=== PATIENT | male | born 1960 | race Caucasian/White ===

== ENCOUNTER 2018-09-02 12:50 | Emergency (ER) | payer MEDICARE, OTHER ==
[~2018-09-02] VITALS: Wt 85.2 kg
[2018-09-02 12:57] VITALS: Wt 85.2 kg
[2018-09-02] MEDS ORDERED: KETOROLAC 15 MG INJ IV STA (13:37)
[2018-09-02] MEDS ORDERED: ACETAMINOPHEN 325 MG TAB PO ONE (14:00)
[2018-09-02] MEDS ORDERED: SOD CHLORIDE 0.9% 1,000 ML IV ONE ×2 (15:00→15:27)
[2018-09-02] MEDS ORDERED: CEFTRIAXONE 1 GM/50 ML (PMX) 50 ML IVPB ONE (15:00)
[2018-09-02] MEDS ORDERED: INSULIN LISPRO 100 UNIT/ML VIAL SC ONE (15:30)
[2018-09-02] MEDS ORDERED: ACET500C5 PO (16:32)
[2018-09-02] MEDS ORDERED: CIPR500T4 PO (16:32)
[2018-09-02] MEDS ORDERED: TAMS-14 PO (16:32)
--- NOTE | 2018-09-02 16:38 | ERD ---
ER Documentation Chief Complaint Chief Complaint states constipation x1d, problems urinating. hx prostate HPI 58-year-old male presents with dysuria for the last day. He also states that he has had a bowel movement today. Normal bowel and yesterday. He has a history of difficulty urinating and states that he has an enlarged prostate. May have had chills but no nausea vomiting. He has mild suprapubic discomfort. Denies flank pain. Denies chest pain or shortness of breath. ROS All systems reviewed and are negative except as per history of present illness. Medications Home Meds Active Scripts Tamsulosin Hcl* (Flomax*) 0.4 Mg Cap.er.24h, 0.4 MG PO BID, #30 CAP Prov:DAPHNE BRADLEY MD 09/02/18 Ciprofloxacin Hcl* (Ciprofloxacin Hcl*) 500 Mg Tablet, 500 MG PO BID for 10 Days, TAB Prov:DAPHNE BRADLEY MD 09/02/18 Acetaminophen* (Tylophen*) 500 Mg Capsule, 1 CAP PO Q6H PRN for PAIN AND OR ELEVATED TEMP, #20 CAP Prov:DAPHNE BRADLEY MD 09/02/18 Allergies Allergies: Coded Allergies: No Known Allergy (Unverified , 09/02/18) PMhx/Soc Medical and Surgical Hx: pt denies Medical Hx History of Surgery: Yes (HERNIA SURGERY (2011)) Anesthesia Reaction: No Hx Neurological Disorder: No Hx Respiratory Disorders: No Hx Cardiac Disorders: No Hx Psychiatric Problems: No Hx Miscellaneous Medical Probl: No Hx Alcohol Use: Yes (RARELY, 1 BEER EVERY 6 MONTHS PER PT) Hx Substance Use: No Hx Tobacco Use: No Smoking Status: Never smoker FmHx Family History: No diabetes, No coronary disease, No other Physical Exam Vitals Vital Signs Date Temp Pulse Resp B/P (MAP) Pulse Ox O2 O2 Flow FiO2 Time Delivery Rate 09/02/18 99.9 16:13 09/02/18 100.6 94 20 109/57 96 12:57 (74) Physical Exam Const: No acute distress. [id number] and ambulatory. Head: Atraumatic Eyes: Normal Conjunctiva ENT: Normal External Ears, Nose and Mouth. Neck: Full range of motion. No meningismus. Resp: Clear to auscultation bilaterally Cardio: Regular rate and rhythm, no murmurs Abd: Soft, minimal suprapubic or lower abdominal tenderness without focal rebound. No tenderness McBurney's point no Morrison sign. Non distended. Normal bowel sounds Skin: No petechiae or rashes Back: No midline or flank tenderness Ext: No cyanosis, or edema Neur: Awake and alert Psych: Normal Mood and Affect Result Diagram: 09/02/18 1422 09/02/18 1422 Results 24 hrs Laboratory Tests Test 09/02/18 14:22 09/02/18 15:39 White Blood Count 15.8 10^3/ul Red Blood Count 4.50 10^6/ul Hemoglobin 14.5 g/dl Hematocrit 42.6 % Mean Corpuscular Volume 94.7 fl Mean Corpuscular Hemoglobin 32.2 pg Mean Corpuscular Hemoglobin Concent 34.0 g/dl Red Cell Distribution Width 11.8 % Platelet Count 146 10^3/UL Mean Platelet Volume 8.5 fl Immature Granulocytes % 1.100 % Neutrophils % 86.5 % Lymphocytes % 7.6 % Monocytes % 4.4 % Eosinophils % 0.1 % Basophils % 0.3 % Nucleated Red Blood Cells % 0.0 /100WBC Immature Granulocytes # 0.180 10^3/ul Neutrophils # 13.7 10^3/ul Lymphocytes # 1.2 10^3/ul Monocytes # 0.7 10^3/ul Eosinophils # 0.0 10^3/ul Basophils # 0.1 10^3/ul Nucleated Red Blood Cells # 0.0 10^3/ul Urine Color YELLOW Urine Clarity CLOUDY Urine pH 5.0 Urine Specific [place] 1.037 Urine Ketones 1+ mg/dL Urine Nitrite POSITIVE mg/dL Urine Bilirubin NEGATIVE mg/dL Urine Urobilinogen NEGATIVE mg/dL Urine Leukocyte Esterase 3+ Jesus/ul Urine Microscopic RBC 19 /HPF Urine Microscopic WBC > 182 /HPF Urine Hemoglobin 1+ mg/dL Urine Glucose 3+ mg/dL Urine Total Protein NEGATIVE mg/dl Sodium Level 135 mmol/L Potassium Level 4.3 mmol/L Chloride Level 101 mmol/L Carbon Dioxide Level 24 mmol/L Anion Gap 10 Blood Urea Nitrogen 15 mg/dl Creatinine 0.83 mg/dl Est Glomerular Filtrat Rate mL/min > 60 mL/min Glucose Level 387 mg/dl Calcium Level 9.7 mg/dl Total Bilirubin 1.8 mg/dl Direct Bilirubin 0.00 mg/dl Indirect Bilirubin 1.8 mg/dl Aspartate Amino Transf (AST/SGOT) 25 IU/L Alanine Aminotransferase (ALT/SGPT) 41 IU/L Alkaline Phosphatase 91 IU/L Total Protein 6.7 g/dl Albumin 3.9 g/dl Globulin 2.80 g/dl Albumin/Globulin Ratio 1.39 Lipase 34 U/L Bedside Glucose 298 mg/dL Current Medications Medications Dose Sig/Gavin Start Time Status Last (Trade) Ordered Route PRN Stop Time Admin Dose Reason Admin Ketorolac 15 mg ONCE STAT 09/02/18 DC 09/02/18 Tromethamine IV 13:37 15:20 (Toradol) 09/02/18 13:39 650 mg ONCE ONCE 09/02/18 DC 09/02/18 Acetaminophen PO 14:00 15:20 (Tylenol 09/02/18 14:01 Tab) Ceftriaxone 50 ml @ ONCE ONCE 09/02/18 DC 09/02/18 Sodium 100 mls/hr IVPB 15:00 15:21 09/02/18 15:29 Sodium 1,000 ml @ Q0M ONCE 09/02/18 DC 09/02/18 Chloride 0 mls/hr IV 15:00 15:21 09/02/18 15:01 Sodium 1,000 ml @ Q0M ONCE 09/02/18 DC 09/02/18 Chloride 0 mls/hr IV 15:27 15:43 09/02/18 15:28 Insulin 8 unit ONCE ONCE 09/02/18 DC 09/02/18 Human SC 15:30 15:41 Lispro 09/02/18 15:31 (Humalog) Procedures/MDM CBC shows leukocytosis of 15.8. Blood sugar is elevated at 387. CMP otherwise without acute findings. Urine shows leukocyte esterase, nitrites, white blood cells. Urine sent for culture. Patient given 2 L normal saline IV, 8 units Humalog subcutaneously. Patient given Rocephin 1 g IV. Repeat blood sugar was 297. Patient was stable and ambulatory and [id number] throughout the ER course. Patient presents with signs and symptoms of acute UTI. He does have a low-grade temperature triage but no signs or symptoms to suggest severe sepsis. He is well-appearing and should be amenable to outpatient treatment with close follow-up. CT abdomen pelvis shows nonspecific calcified small lesion in the lower abdomen and thickening of bladder wall consistent with cystitis. There is no signs or symptoms of pyelonephritis, abscess, additional acute abnormalities. Patient be discharged home with a prescription of Cipro, Flomax, ibuprofen, recommendations for primary care follow-up review of abnormality on CT. Should return for fevers, vomiting, worsening pain, new worsening symptoms. The patient was stable with no new complaints during the ER course. Clinically, there is no current evidence to suggest meningitis, sepsis, acute abdomen, pneumonia, stroke, acute coronary syndrome, pulmonary embolism, aortic dissection or any other emergent condition appearing to require further pérez luation or hospitalization. Patient counseled regarding my diagnostic impression and care plan. Prior to discharge all questions answered. Pt agrees with treatment plan and understands strict return precautions. Pt is instructed to follow up with primary care provider within 24-48 hours. Precautionary instructions provided including instructions to return to the ER if not improving or for any worsening or changing symptoms or concerns. Disclaimer: Inadvertent spelling and grammatical errors are likely due to EHR/dictation software use and do not reflect on the overall quality of patient care. Also, please note that the electronic time recorded on this note does not necessarily reflect the actual time of the patient encounter. Departure Diagnosis: Primary Impression: Hyperglycemia Additional Impression: UTI (urinary tract infection) Urinary tract infection type: acute cystitis Hematuria presence: without hematuria Qualified Codes: N30.00 - Acute cystitis without hematuria Condition: Stable Patient Instructions: Hyperglycemia (High Blood Sugar), Understanding Urinary Tract Infections (UTIs), Tumor, Uncertain Cause Additional Instructions: HAY INFECCION EN ORINA. CHARLES MUCH AGUA . REGRESA PARA FIEBRE, VOMIT, MAS DOLOR. HAY UN BOLITA EN CT SCAN EN ALBERTO ABDOMEN TAMBIEN. CHEQUE CON ALBERTO DOCTOR PARA MAS EVALUACION Y TRATAMIENTO. DAPHNE BRADLEY MD September 02, 2018 16:38
[2018-09-02 16:51] VITALS: BP 111/68; PULSE 96; RESP 18
== END 2018-09-02 16:52 | disposition home or self-care (01) ==
LOC: FTE 12:50
DX: N30.00 Acute cystitis without hematuria (principal); R73.9 Hyperglycemia, unspecified
CPT/HCPCS: 36415; 74176; 80053; 81001; 82962; 83690; 85025; 87086; 96365; 96372; 96375; J0696; J1815; J1885; J7030; Z7502; Z7610